=== PATIENT | male | born 1990 | race Caucasian/White ===

== ENCOUNTER 2016-05-29 19:06 | Emergency (ER) | payer OTHER ==
[~2016-05-29] VITALS: Ht 152.4 cm; Wt 70.3 kg
[~2016-05-29 19:06] MED LIST: HYDR-2666 PO
[2016-05-29 19:10] VITALS: BP 138/73
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
[2016-05-29] MEDS ORDERED: NAPR550T PO (20:32)
[2016-05-29] MEDS ORDERED: HYDR-971 PO (20:32)
--- NOTE | 2016-05-30 08:40 | RAD ---
Indication: Pain in the medial right ankle. Time of exam 1956 hours. No prior studies are available for comparison. There is an old fracture deformity of the distal tibia and fibula. Ankle mortise is well maintained. The talar dome is smooth. There is a well-corticated osseous density lying within the subcutaneous tissues superficial to the medial malleolus. This appears to be chronic. No definite acute fracture is detected. Minimal lucency projects just proximal to the corticated bony density and the possibility of soft tissue gas cannot be entirely excluded. CT through the right ankle may be useful for further evaluation. Impression: Chronic fracture deformity of the right ankle. There is an osseous fragment noted superficial to the medial malleolus and questionable adjacent soft tissue gas, indeterminate. CT through the right ankle may be useful for further evaluation.
== END 2016-05-29 20:36 | disposition home or self-care (01) ==
LOC: ER 19:06
DX: S93.401A Sprain of unspecified ligament of right ankle, initial encounter (principal); F17.200 Nicotine dependence, unspecified, uncomplicated; Z98.890 Other specified postprocedural states; X58.XXXA Exposure to other specified factors, initial encounter; Y93.01 Activity, walking, marching and hiking; Y92.69 Other specified industrial and construction area as the place of occurrence of the external cause; Y99.8 Other external cause status
CPT/HCPCS: 29515; 73610; 99284-25